=== PATIENT | male | born 1975 | race Caucasian/White ===

== ENCOUNTER → 2016-06-05 | Outpatient (CLI) | payer OTHER ==
--- NOTE | 2016-06-07 07:50 | XCELERA REPORT ---
[address] [address] Lower Extremity Arterial Evaluation Name: DIO VILLARREAL Age: 40 yrs Gender: Male : 1975 Patient Status: Outpatient Patient Location: Study Date: 06/05/2016 11:13 AM Procedure: A color flow and duplex scan of the lower extremity arteries was performed on the right with velocity and waveform anaylsis. Ankle brachial indicies performed. Reason For Study: RLE ULCER Ordering Physician: James Coombs Performed By: Lucy Lindsey Measurements and Calculations Right Left TRUST VAULT CLERK PSV 175.8 cm/sec Prox PFA PSV -106.9 cm/sec Prox SFA PSV 92.4 cm/sec Mid SFA PSV -110.6 cm/sec Dist SFA PSV -79.0 cm/sec Prox Pop A PSV 56.3 cm/sec Dist ADDISON PSV 60.2 cm/sec Dist CHIEF CRNA PSV 79.5 cm/sec Abraham Pedis PSV 93.7 69.5 cm/sec Right Side Arterial Evaluation Normal velocity, waveform and triphasic flow are present, from the Common Femoral artery down to the infrageniculate vessels. The ankle-brachial index is 1.14. 0 % stenosis is noted. Left Side Arterial Evaluation JAYSHREE of 1.13, triphasic flow in the Dorsalis Pedis. Interpretation Summary No hemodynamically significant lesions in the right lower extremity only, on duplex imaging, at rest. Normal findings on spot check in the left Dorsalis Pedis artery. : James Coombs > Henok Degroot
== END ==
LOC: SP 10:46
PROVIDERS: ATTEND Podiatrist Foot & Ankle Surgery
DX: L97.519 Non-pressure chronic ulcer of other part of right foot with unspecified severity (principal)
CPT/HCPCS: 93926

== ENCOUNTER → 2016-06-20 | Outpatient (CLI) | payer OTHER ==
[2016-06-20 15:11] LABS: ABSOLUTE EOSINOPHILS # (AUTO) 0.1 10^3/uL (0.0-0.6); ABSOLUTE LYMPHOCYTES (AUTO) 1.4 10^3/uL (0.5-4.7); ABSOLUTE MONOCYTES (AUTO) 0.6 10^3/uL (0.1-1.4); ABSOLUTE NEUT (AUTO) 3.2 10^3/uL (1.7-8.2); BASOPHILS % (AUTO) 0.5 % (0-2); EOSINOPHILS % (AUTO) 1.7 % (0-6); HEMATOCRIT 42.2 % (37.9-51.0); HEMOGLOBIN 14.3 g/dL (13.5-17.0); HGB HCT DIFFERENCE 0.7; MEAN CORPUSCULAR HEMOGLOBIN 32.9 pg (27.0-33.4); MEAN CORPUSCULAR VOLUME 97 fl (80-97); RED BLOOD COUNT 4.36 10^6/uL (4.35-5.55); RED CELL DISTRIBUTION WIDTH 12.7 % (11.5-14.0); SEGMENTED NEUTROPHILS % (AUTO) 60.8 % (42-78); WHITE BLOOD COUNT 5.3 10^3/uL (4.0-10.5)
[2016-06-20 15:37] LABS: ALANINE AMINOTRANSFERASE 44 U/L (21-72); ALBUMIN 4.7 g/dL (3.5-5.0); ALKALINE PHOSPHATASE 50 U/L (38-126); ANION GAP 15 (5-19); ASPARTATE AMINO TRANSFERASE 48 U/L (17-59); BILIRUBIN,TOTAL 0.9 mg/dL (0.2-1.3); BLOOD UREA NITROGEN 12 mg/dL (7-20); CALCIUM 9.5 mg/dL (8.4-10.2); CARBON DIOXIDE 30 mmol/L (22-30); CHLORIDE 101 mmol/L (98-107); GLUCOSE 83 mg/dL (75-110); POTASSIUM 3.9 mmol/L (3.6-5.0); SODIUM 145.8 mmol/L (137-145); TOTAL PROTEIN 7.6 g/dL (6.3-8.2)
[2016-06-20 15:38] LABS: C-REACTIVE PROTEIN < 5.0 mg/L (<10.0)
[2016-06-20 15:45] LABS: ERYTHROCYTE SEDIMENTATION RATE 5 mm/hr (0-15)
== END ==
LOC: WC 14:14
PROVIDERS: ATTEND Nurse Practitioner Family
DX: L97.514 Non-pressure chronic ulcer of other part of right foot with necrosis of bone (principal)
CPT/HCPCS: 36415; 80053; 83036; 85025; 85652; 86140

== ENCOUNTER → 2016-08-10 | Outpatient (CLI) | payer OTHER | LOC: RAD 08:30 | PROVIDERS: ATTEND Preventive Medicine Undersea and Hyperbaric Medicine | DX: L97.512 Non-pressure chronic ulcer of other part of right foot with fat layer exposed (principal) | CPT/HCPCS: 78315; A9503; Q9969 ==